=== PATIENT | male | born 1990 | race Caucasian/White ===

== ENCOUNTER 2018-09-30 06:22 | Emergency (ER) | payer OTHER, SELFPAY ==
[2018-09-30 06:26] VITALS: BP 158/107; PULSE 96; RESP 18; TEMP 37; O2SAT 99
--- NOTE | 2018-09-30 06:44 | ED.GENADUL_ITS ---
Discharge Plan Disposition Patient Disposition: HOME Condition: Good Discharge Details Chief Complaint: Orthopedic Clinical Impression: Crushing injury of right thumb, initial encounter, Subungual hematoma Primary Care Provider: None,None ED Provider: Adyd Tee Home Meds and New Rx's Prescriptions: No Action No Known Home Meds RF: 0 Discharge Instructions Additional Instructions: Use ice and Motrin to help with pain and swelling. If it is just a bruise it should be better within a week. If there is a tuft fracture it would be more like 3 to 4 weeks. You may or may not lose the nail. Return to ED if significantly worse pain, redness, swelling. We will have care management work on helping you obtain a primary care. Referrals: Care Management [Provider Group] Medical Decision Making Patient with small subungual hematoma. Not sure would even obtain blood given the small size of this hematoma. He seems to have more pain and discomfort in the thumb pad where there is definite swelling and tenderness. Discussed the possibility of tuft fracture. He has no abnormal range of motion. There would be no definitive or change in treatment plan other than splinting which he does not want. He does not want x-rays. We will hold off on trephination at this point as the subungual hematoma is so small. Patient instructed to use ibuprofen and ice over the next few days. If it is just bruising will resolve in a few days. If the fracture will be painful over the course of a few weeks. Return to ED if any issues. HPI General Mode of arrival: ambulatory . Date/Time Provider Initiated Documentation: 09/30/18 06:41 . Limitations to Documentation: no limitations . Information obtained by: patient . HPI Narrative: Patient presents to ED with right thumb pain. 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 He got his right thumb crushed between a wrench and metal. Happened late yesterday afternoon. He has had discoloration of the thumbnail. He has throbbing especially to the pad. He came in for evaluation this morning prior to going to work. Related Data Home Medications Medication Instructions Recorded Confirmed Unknown [No Known Home Meds] 11/28/14 11/28/14 Allergies Allergy/AdvReac Type Severity Reaction Status Date / Time No Known Allergies Allergy Unverified 11/28/14 14:54 General Stated Complaint: Orthopedic BENI: 3 Review of Systems Constitutional Denies weakness Musculoskeletal Denies numbness and Denies tingling Comments: thumb pain/swelling Integumentary/Breasts Reports nail changes, Denies erythema and Denies wounds Neurologic Denies numbness, Denies sensory deficit, Denies tingling and Denies weakness [facility] Social History Smoking/Tobacco Use Status: Current-Occasional Drug use: Never Do you feel safe at home: Yes Do you feel safe in your relationship?: Yes Exam Const General: cooperative, comfortable and no acute distress Orientation: alert and oriented x3 Skin Trauma: no lacerations or abrasions Extrem Other: Right thumb with normal range of motion. There is a small subungual hematoma less than a quarter of the nail on the radial aspect proximally. He has tenderness and swelling involving the radial aspect of the pad. Rest of hand exam is unremarkable. Course Vital Signs Temperature 98.6 F 09/30/18 06:26 Pulse 96 H 09/30/18 06:26 Respiratory Rate 18 09/30/18 06:26 Blood Pressure 158/107 H 09/30/18 06:26 Pulse Oximetry 99 09/30/18 06:26 Temperature 98.6 F 09/30/18 06:26 Temperature Source Tympanic 09/30/18 06:26 Pulse 96 H 09/30/18 06:26 Respiratory Rate 18 09/30/18 06:26 Respiratory Effort Non-Labored 09/30/18 06:31 Blood Pressure 158/107 H 09/30/18 06:26 Pulse Oximetry 99 09/30/18 06:26 Oxygen Delivery Method Room Air 09/30/18 06:26 Oxygen Flow Rate 0 09/30/18 06:26 Pain Level 6 09/30/18 06:26
[2018-09-30 07:01] VITALS: BP 158/107; PULSE 96; RESP 18; O2SAT 99
--- NOTE | 2018-09-30 10:24 | NUR.NOTE ---
Nursing Note: Faxed to [facility] patient referral. Sharon Coronado
== END 2018-09-30 07:04 | disposition home or self-care (01) ==
PROVIDERS: Emergency Provider Emergency Medicine
DX: S67.01XA Crushing injury of right thumb, initial encounter (principal); S60.011A Contusion of right thumb without damage to nail, initial encounter; W23.0XXA Caught, crushed, jammed, or pinched between moving objects, initial encounter
CPT/HCPCS: 99282

== ENCOUNTER 2019-03-11 09:10 | Emergency (ER) | payer OTHER, SELFPAY ==
[2019-03-11 09:13] VITALS: BP 163/86; PULSE 107; RESP 16; TEMP 36.8; O2SAT 99
--- NOTE | 2019-03-11 09:31 | W.ED.GENAD ---
Discharge Plan Disposition Patient Disposition: HOME Condition: Stable Discharge Details Chief Complaint: Laceration Clinical Impression: Laceration of nose Primary Care Provider: None,None ED Provider: Sintia Pack Home Meds and New Rx's Prescriptions: No Action No Known Home Meds RF: 0 Discharge Instructions Instructions: Facial Laceration (ED) Additional Instructions: Do not cover the wound with Band-Aid, tape, antibiotic ointment. Let the glue fall off naturally and do not peel it off prematurely. Take Tylenol and Motrin as needed and directed for pain. Return to the emergency department if you develop any worsening or concerning symptoms such as persistent headaches, persistent vomiting, dizziness, blurry vision or weakness. Discharge Data Discharge Date/Time-TO BE ENTERED AT DEPARTURE: 03/11/19 10:00 Discharge Physician: Sintia Pack Medical Decision Making 28-year-old male presents with laceration to the bridge of his nose sustained when hit with a pipe wrench at work against his glasses which caused the laceration to his nose. Denies LOC, vomiting, blurry vision, neck pain. Unknown tetanus status. There is a 1 cm straight laceration with a 2 mm superficial abrasion extending off distal aspect. Patient has no obvious bony injury, deformity, epistaxis, periorbital edema or ecchymosis. Do not see an indication for imaging of the face or head at this time and patient is agreeable. Wound irrigated well. Tetanus given. Wound closed with Dermabond. Edges well approximated. Patient was instructed on care with Dermabond. He is advised to follow-up with his primary care doctor for reevaluation and to return here anytime with any concerns. HPI General Mode of arrival: ambulatory. Date/Time Provider Initiated Documentation: 03/11/19 09:18. Limitations to Documentation: no limitations. Information obtained by: patient. History of Present Illness described as moderate, Quality is described as aching, and is localized to the face. Patient reports no radiation. Patient started experiencing this hour(s) (1) and it has been constant. No relieving factors improve symptom(s), No exacerbating factors reported . Patient notes other (Denies neck pain); denies headaches, nausea/vomiting, seizure, syncope and weakness. Patient did receive the following treatments prior to arrival, none HPI Narrative: Hit himself with a pipe wrench at work sustaining a laceration to the bridge of his nose. Related Data Home Medications Medication Instructions Recorded Confirmed Unknown [No Known Home Meds] 11/28/14 03/11/19 Allergies Allergy/AdvReac Type Severity Reaction Status Date / Time No Known Allergies Allergy Unverified 11/28/14 14:54 General Stated Complaint: Laceration BENI: 4 Review of Systems All systems reviewed & are unremarkable except as noted in HPI and below Constitutional Constitutional: Reports as per HPI, Denies chills and Denies fever(s) Eyes Eyes: Denies blurry vision ENT Ears, Nose, Mouth, and Throat: Denies dizziness, Denies sore throat and Denies throat swelling Cardiovascular Cardiovascular: Denies chest pain and Denies dyspnea Respiratory Respiratory: Denies cough and Denies dyspnea Gastrointestinal Gastrointestinal: Denies abdominal pain, Denies diarrhea and Denies vomiting Genitourinary Genitourinary: Denies hematuria and Denies dysuria Musculoskeletal Musculoskeletal: Denies back pain and Denies numbness Integumentary/Breasts Skin/Breast: Denies lesions and Denies rash Neurologic Neurologic: Denies dizziness, Denies focal weakness and Denies numbness Allergic/Immunologic Allergic/Immunologic: Denies throat swelling [facility] Medical History No significant past medical history (Acute) Surgical History No significant past surgical history (Acute) Social History Smoking/Tobacco Use Status: Former Tobacco Use Alcohol Intake: current Alcohol Intake frequency: a few times a week Alcohol type: hard liquor Drug use: Never Substance use type: does not use Do you feel safe at home: Yes Do you feel safe in your relationship?: Yes Exam Const General: cooperative, healthy appearing and no acute distress [facility] Head: normal to inspection, no palpable skull fracture, normocephalic and atraumatic Ears: hearing grossly normal bilaterally, external ears normal and TM's normal bilaterally General nose exam: nares normal and no nasal discharge Face images: 1. 1cm straight laceration located on bridge of nose. There is a 2mm superficial abrasion extending off the distal aspect of laceration. Mild active oozing. Mouth: oral mucosae normal Teeth and gingiva: dentition normal Throat: posterior oropharynx normal Eyes General: appearance normal, both eyes and all related structures Neck Neck: normal visual inspection Resp Effort & Inspection: normal respiratory effort and able to speak in complete sentences Cardio Rate: regular rate Back/Spine/Pelvis Cervical Spine: No cervical spinal tenderness Skin General skin exam: no rashes or lesions noted Neuro General: alert, awake, oriented x3 and moves all extremities Motor: muscle tone normal throughout Extrem General: normal to inspection and full ROM Psych Appearance: grossly normal Affect: normal affect Course Vital Signs Vital signs: Vital Signs Temperature 98.2 F 03/11/19 09:13 Pulse 107 H 03/11/19 09:13 Respiratory Rate 16 03/11/19 09:13 Blood Pressure 163/86 H 03/11/19 09:13 Pulse Oximetry 99 03/11/19 09:13 Temperature 98.2 F 03/11/19 09:13 Pulse 107 H 03/11/19 09:13 Respiratory Rate 16 03/11/19 09:13 Respiratory Effort Non-Labored 03/11/19 09:18 Blood Pressure 163/86 H 03/11/19 09:13 Blood Pressure Position Sitting 03/11/19 09:13 Pulse Oximetry 99 03/11/19 09:13 Oxygen Delivery Method Room Air 03/11/19 09:13 Oxygen Flow Rate 0 03/11/19 09:13 Pain Level 5 03/11/19 09:13 Procedures Laceration Laceration 1: Site: face Side (If applicable): right Size (cm): 1 Description: linear Depth: simple, single layer Pre-repair: wound explored, irrigated extensively and deep structures intact Skin layer closed with: other (dermabond)
--- NOTE | 2019-03-11 09:36 | NUR.NOTE ---
Nursing Note: clean Lac with N/s per Dr. Pack
== END 2019-03-11 10:00 | disposition home or self-care (01) ==
LOC: ER 09:47
PROVIDERS: Emergency Provider Physician Assistant
DX: S01.21XA Laceration without foreign body of nose, initial encounter (principal); W27.0XXA Contact with workbench tool, initial encounter
CPT/HCPCS: 12001; 90471; 99283

== ENCOUNTER 2023-04-23 17:49 | Emergency (ER) | payer OTHER, SELFPAY ==
[2023-04-23] VITALS (64 sets, daily range): BP systolic 147–190; BP diastolic 92–131; PULSE 61–89; RESP 8–21; TEMP 35.7; O2SAT 84–100
--- NOTE | 2023-04-23 17:45 | RT.EKG_ITS ---
APPROVED REPORT Exam: Resting ECG Reason for Exam: chest pain Patient Location: E HR:68 bpm ECG Measurements Heart Rate 68 AXIS NE 170 P 31 QRSd 100 QRS 5 QT 371 T -2 QTc 394 Conclusion Sinus rhythm...normal P axis, V-rate 60- 99 ST elevation, consider lateral injury...ST >0.10mV, I aVL V5 V6 sinus rhythm, normal axis, normal intervals, t wave inversion and st depressions III aVF, without rec iprocal changes
--- NOTE | 2023-04-23 18:08 | W.ED.GENAD ---
Discharge Plan Disposition Patient Disposition: Transfer-Acute Inpatient Care Specific Acute Inpt Facility: [facility] Condition: Critical Discharge Details Clinical Impression: Acute non-ST elevation myocardial infarction (NSTEMI) Primary Care Provider: None,None ED Provider: Deepti Gasca Home Meds and New Rx's Prescriptions: No Action No Known Home Meds Discharge Data Discharge Date/Time-TO BE ENTERED AT DEPARTURE: 04/23/23 23:17 Medical Decision Making Patient presents with substernal chest pain has been having since 3:00 pm this afternoon while at work no significant alleviating or aggravating factors noted but did say he vomitted x1 which helped his symptoms. Took Tums with no improvement. EKG has been obtained and does show ST depression in leads II and III. He is given aspirin 324 mg to chew. He will also be given nitroglycerin x3 with routine cardiac labs obtained, patient will remain monitored in the department while investigations are returned. Will have a chest x-ray. Differentials include ACS aortic dissection GERD. Doubt pneumothorax or infectious etiology. Initial troponin returned at 200. Patient did not have any improvement in his symptoms with the SL nitro x3. at this time will initiate heparin drip per ACS protocol and start nitroglycerin drip titrate to chest pain free as long as blood pressure tolerates. Call has been placed to cardiology at [facility] for transfer request for further cardiac evaluation. 1953: Received call back from [facility] [place] spoke with Dr. Elizabeth, case has been reviewed. He recommends adding carvedilol 12.5 mg p.o., atorvastatin 80 mg and Plavix load of 600 mg p.o. stat in addition to current heparin and nitroglycerin drip. We have been titrating and he is at 15 mics per minute, we will continue to titrate per protocol. Patient's pain has been constant and not responsive to nitro. Patient has been accepted in transfer under Dr. Roque pending bed availability. 3-hour troponin pending for 2099 with repeat EKG, will continue to closely monitor patient's cardiovascular status while awaiting transfer 2123: repeat troponin drawn at 2099 now increased to 1700, nitro currently at 50 mcg/min, will continue to titrate for pain which is 5/10 down from 7/10. EKG repeated, both faxed to DR Elizabeth at [facility]. 2224: notified of bed acceptance, nitro now at 70 mcg/min with c/p 4/10, will give morphine 4 mg IVP. transfer paperwork completed. will continue to titrate nitro and monitor patient and if still here, will need repeat troponin at 0300. 2310: patient transported to [facility] [place] EMS in stable condition. Medical Records Medical records reviewed: Yes I reviewed the patient's medical records. Imaging Data Radiologic Study: Imaging: X-Ray Radiologist's impression: Patient Name: Herson Amado Unit #: [id number] Loc: ER Ordering Provider: Deepti Gasca [employer]ICER Status: REG ER Primary Care Provider: None,None Date of Exam: 04/23/23 Sex: M Admission Date: 04/23/23 : 1990 Age: 33 Exam(s) XR PORTABLE CHEST AP EXAM: XR PORTABLE CHEST AP CLINICAL HISTORY: chest pain TECHNIQUE: 2D digital imaging was performed. COMPARISON: No exams were available for comparison FINDINGS: LUNGS: Clear. No pleural abnormality seen. HEART: Normal size. AORTA: Normal diameter. BONES: Unremarkable for age. Soft tissues: Unremarkable. IMPRESSION: No acute findings. Lab Data Lab results reviewed: Yes I reviewed the patient's lab results. Lab results narrative: Laboratory Results - last 24 hr 04/23/23 04/23/23 18:10 20:36 WBC 8.40 RBC 5.55 Hgb 15.7 Hct 45.0 MCV 81 MCH 28.3 MCHC 34.9 RDW 12.2 Plt Count 361 MPV 9.0 Immature Gran % 1.0 Neutrophils % 71.1 Lymphocytes % 20.7 Monocytes % 5.5 Eosinophils % 1.1 Basophils % 0.6 Nucleated RBC % 0.0 Absolute Neutrophils 5.98 Absolute Lymphocytes 1.74 Absolute Monocytes 0.46 Absolute Eosinophils 0.09 Absolute Basophils 0.05 D-Dimer 193 Sodium 141 Potassium 3.9 Chloride 104 Carbon Dioxide 27.3 Anion Gap 9.7 BUN 18 Creatinine 1.2 Est GFR (CKD-EPI 2020) 81.38 Glucose 129 H Calcium 9.4 Magnesium 2.0 Total Bilirubin 0.3 AST 23 ALT 37 Alkaline Phosphatase 76 Troponin I 202 H* 1705 H* NT-Pro-B Natriuret Pep 30 Total Protein 7.9 Albumin 4.2 ECG Data Attestation: I personally reviewed and interpreted this ECG (s) as follows: (t wave inversion leads 2 and 3. ) Interpretation: EKG read per DR Meek. HPI General Mode of arrival: ambulatory. Date/Time Provider Initiated Documentation: 04/23/23 17:56. Limitations to Documentation: no limitations. Information obtained by: patient. HPI Narrative: Patient presents to the emergency department for sudden onset of substernal chest pressure today while at work. States the pain has been constant. Does not radiate anywhere. Did try Tums with no significant improvement. Reports that he did vomit which actually helped his symptoms. He denies any aggravating factors. He denies any similar history in the past. He denies any cough or recent illness. He has had no peripheral edema. He states he does have a history of hypertension which is untreated as he does not have a primary care provider. On exam blood pressure is noted to be elevated. Non-smoker No family history of early cardiac disease or known cardiac disease Related Data Home Medications Medication Instructions Recorded Confirmed Unknown [No Known Home Meds] 11/28/14 04/23/23 Allergies Allergy/AdvReac Type Severity Reaction Status Date / Time No Known Allergies Allergy Unverified 11/28/14 14:54 General Stated Complaint: Chest Pain BENI: 3 Review of Systems All systems reviewed & are unremarkable except as noted in HPI and below PFSH All Active Problems (Updated 04/23/23 @ 21:28 by Deepti Gasca NP) Acute non-ST elevation myocardial infarction (NSTEMI) (Acute) Medical History (Updated 04/23/23 @ 21:28 by Deepti Gasca NP) No significant past medical history Surgical History No significant past surgical history Social History Smoking/Tobacco Use Status: Former Tobacco Use Smoking risk assessment performed?: Yes Alcohol Intake: current Alcohol Intake frequency: a few times a week Alcohol type: hard liquor Drug use: Never Substance use type: does not use Housing: house Do you feel safe at home: Yes Do you feel safe in your relationship?: Yes Exam Narrative Exam Narrative: Obese male of stated age in no acute distress head is atraumatic oral mucosas moist cardiovascular regular rate and rhythm no murmurs are appreciated respirations are even and unlabored with clear breath sounds bilaterally neck is supple with no evidence of JVD abdomen is benign moves all extremities with no edema skin no rashes or lesions neuro he is awake alert oriented no focal deficits Course Vital Signs Vital signs: Vital Signs Temperature 35.7 C L 04/23/23 17:52 Pulse 77 04/23/23 17:52 Respiratory Rate 20 04/23/23 17:52 Blood Pressure 182/131 H 04/23/23 17:52 Pulse Oximetry 100 04/23/23 17:52 Temperature 35.7 C L 04/23/23 17:52 Temperature Source Temporal Artery Scan 04/23/23 17:52 Pulse 77 04/23/23 17:52 Respiratory Rate 20 04/23/23 17:55 Respiratory Effort Normal 04/23/23 17:55 Respiratory Depth Normal 04/23/23 17:55 Respiratory Pattern Normal 04/23/23 17:55 Blood Pressure 182/131 H 04/23/23 17:52 Blood Pressure Position Sitting 04/23/23 17:52 Pulse Oximetry 100 04/23/23 17:52 Oxygen Delivery Method Room Air 04/23/23 17:52 Oxygen Flow Rate 0 04/23/23 17:52 PAWSS Have you Been Recently Intoxicated or Drunk Within the Last 30 days?: No Have you Ever Experienced Previous Episodes of Alcohol Withdrawal?: No Have you ever Experienced Withdrawal Seizures?: No Have you ever Experienced Delirium Tremens(DT)s?: No Have you ever undergone Alcohol Rehabilitation Treatment (i.e, inpt ot outpatient treatment programs)?: No Have you ever Experienced Blackouts?: No Have you ever Combined Alcohol with other Downers within the last 90 days?: No Have you ever Combined Alcohol with any other Substance of Abuse during the last 90 days?: No Positive Blood Alcohol level on Presentation? [PCS.BAL]: No Evidence of Increased Autonomic Activity (i.e. HR>120, tremor, sweating, agitation, nausea)?: No Result: 0
[2023-04-23] MEDS: Aspirin 81 MG CHEW 324 MG CH (18:11)
[2023-04-23] MEDS: nitroGLYcerin 0.4 MG TAB SL (18:11)
[2023-04-23 18:16] LABS: Abs Immature Grans 0.08 10^3/uL (0.0-0.06); Absolute Basophil Count 0.05 10^3/uL (0.0-0.2); Absolute Eosinophil Count 0.09 10^3/uL (0.0-0.7); Absolute Lymphocyte Count 1.74 10^3/uL (1.2-3.4); Absolute Monocyte Count 0.46 10^3/uL (0.1-0.8); Absolute Neutrophil Count 5.98 10^3/uL (1.2-6.7); Basophils % 0.6; Eosinophils % 1.1; HGB 15.7 g/dL (13.5-17.5); Lymphocytes % 20.7; MCH 28.3 pg (27.0-33.0); MCHC 34.9 % (32.0-36.0); MCV 81 fL (80-95); Monocytes % 5.5; Neutrophils % 71.1; Platelet Count 361 10^3/uL (130-400); RBC 5.55 10^6/uL (4.36-5.78); RDW 12.2 % (11.8-14.1); RDW-SD 35.8 fL
--- NOTE | 2023-04-23 18:28 | DI.RAD_ITS ---
Exam(s) XR PORTABLE CHEST AP EXAM: XR PORTABLE CHEST AP CLINICAL HISTORY: chest pain TECHNIQUE: 2D digital imaging was performed. COMPARISON: No exams were available for comparison FINDINGS: LUNGS: Clear. No pleural abnormality seen. HEART: Normal size. AORTA: Normal diameter. BONES: Unremarkable for age. Soft tissues: Unremarkable. IMPRESSION: No acute findings. DATA REPOSITORY: RADIATION DOSE DELIVERED:
[2023-04-23 18:37] LABS: ALT 37 U/L (16-63); AST 23 U/L (15-37); Albumin 4.2 g/dL (3.4-5.0); Alkaline Phosphatase 76 U/L (46-116); Anion Gap 9.7 mmol/L (3-11); BUN 18 mg/dL (7-18); Bilirubin, Total 0.3 mg/dL (0.2-1.0); CO2 27.3 mmol/L (21.0-32.0); CREATININE 1.2 mg/dL (0.70-1.30); Calcium 9.4 mg/dL (8.5-10.1); Chloride 104 mmol/L (98-107); Estimated GFR 81.38 (mL/min/1.73m2); Glucose 129 mg/dL (74-106); NT-proBNP 30 pg/mL (<300); Potassium 3.9 mmol/L (3.5-5.1); Sodium 141 mmol/L (136-145); Total Protein 7.9 g/dL (6.4-8.2)
[2023-04-23 18:42] LABS: Troponin I 202 ng/L (<or=60)
[2023-04-23 18:56] LABS: D-Dimer 193 ng/mlFEU (<500)
[2023-04-23] MEDS: Heparin in 0.45% NaCl 25,000 UNIT/250 ML BAG 10 UNIT IV (19:00)
[2023-04-23] MEDS: Acetaminophen 500 MG TAB 1000 MG PO (19:04)
[2023-04-23] MEDS: nitroGLYcerin in D5W 50 MG/250 ML BTL IV (19:30)
[2023-04-23] MEDS: Atorvastatin 40 MG TAB 80 MG PO (20:15)
[2023-04-23] MEDS: Clopidogrel 300 MG TAB 600 MG PO (20:15)
--- NOTE | 2023-04-23 20:45 | RT.EKG_ITS ---
APPROVED REPORT Exam: Resting ECG Reason for Exam: follow up Patient Location: E HR:65 bpm ECG Measurements Heart Rate 65 AXIS NJ 163 P 33 QRSd 104 QRS 40 QT 382 T -5 QTc 398 Conclusion Sinus rhythm...normal P axis, V-rate 60- 99 ST elev, probable normal early repol pattern...ST elevation, age<55 sinus rhythm, normal axis, normal intervals
[2023-04-23 21:26] LABS: Troponin I 1705 ng/L (<or=60)
[2023-04-23] MEDS: Carvedilol 12.5 MG TAB PO (21:38)
--- NOTE | 2023-04-24 10:20 | NUR.NOTE ---
Accessed chart to determine orders for EKG and to determine whether or not one needs to be cancelled. Nursing Note:
== END 2023-04-23 23:17 | disposition short-term general hospital (02) ==
PROVIDERS: Emergency Provider Nurse Practitioner Acute Care
DX: I21.4 Non-ST elevation (NSTEMI) myocardial infarction (principal); I10 Essential (primary) hypertension; R94.31 Abnormal electrocardiogram [ECG] [EKG]; R79.89 Other specified abnormal findings of blood chemistry; Z87.891 Personal history of nicotine dependence
CPT/HCPCS: 80053; 93005; 96374; 99285; 71045; 83735; 83880; 84484; 85025; 85379; 93010

== ENCOUNTER 2023-05-01 18:19 | Outpatient (CLI) | payer OTHER, SELFPAY ==
[2023-05-01 16:24] LABS: Anion Gap 10.9 mmol/L (3-11); BUN 19 mg/dL (7-18); CO2 28.1 mmol/L (21.0-32.0); CREATININE 1.1 mg/dL (0.70-1.30); Calcium 9.2 mg/dL (8.5-10.1); Chloride 102 mmol/L (98-107); Estimated GFR 90.34 (mL/min/1.73m2); Glucose 99 mg/dL (74-106); Potassium 4.6 mmol/L (3.5-5.1); Sodium 141 mmol/L (136-145)
== END 2023-05-01 18:20 | disposition home or self-care (01) ==
LOC: LBO 18:19
PROVIDERS: Visit Provider Nurse Practitioner Family
DX: I10 Essential (primary) hypertension (principal)
CPT/HCPCS: 36415; 80048

== ENCOUNTER 2023-05-22 08:09 | Outpatient (CLI) | payer OTHER, SELFPAY ==
--- NOTE | 2023-05-22 08:00 | RT.EKG_ITS ---
APPROVED REPORT Exam: Resting ECG Reason for Exam: CAD Patient Location: O HR:75 bpm ECG Measurements Heart Rate 75 AXIS W[place] 161 P 41 QRSd 107 QRS 84 QT 374 T 70 QTc 418 Conclusion Sinus rhythm...normal P axis, V-rate 50- 99 ST elev, probable normal early repol pattern...ST elevation, age<55 I have reviewed and interpreted ECG and agree with software generated interpretation.
== END 2023-05-22 08:10 | disposition home or self-care (01) ==
LOC: DI.CARD 08:09
PROVIDERS: Visit Provider Internal Medicine Interventional Cardiology
DX: I25.10 Atherosclerotic heart disease of native coronary artery without angina pectoris (principal)
CPT/HCPCS: 93010

== ENCOUNTER 2023-05-26 08:08 | Outpatient (RCR) | payer OTHER, SELFPAY | END 2023-05-28 23:59 | disposition home or self-care (01) | LOC: CR 08:08 | PROVIDERS: Visit Provider Internal Medicine Interventional Cardiology | DX: Z95.2 Presence of prosthetic heart valve (principal); Z51.89 Encounter for other specified aftercare | CPT/HCPCS: S9472 ==

== ENCOUNTER 2023-06-23 08:00 | Outpatient (RCR) | payer OTHER, SELFPAY | END 2023-06-26 23:59 | disposition home or self-care (01) | LOC: CR 08:00 | PROVIDERS: Visit Provider Internal Medicine Cardiovascular Disease | DX: Z95.2 Presence of prosthetic heart valve (principal); Z51.89 Encounter for other specified aftercare | CPT/HCPCS: S9472 ==

== ENCOUNTER 2023-07-18 08:34 | Outpatient (RCR) | payer OTHER, SELFPAY | END 2023-07-27 23:59 | disposition home or self-care (01) | LOC: CR 08:34 | PROVIDERS: Visit Provider Internal Medicine Cardiovascular Disease | DX: I25.10 Atherosclerotic heart disease of native coronary artery without angina pectoris (principal); Z51.89 Encounter for other specified aftercare | CPT/HCPCS: S9472 ==

== ENCOUNTER 2025-04-06 07:46 | Outpatient (CLI) | payer OTHER, SELFPAY ==
--- NOTE | 2025-04-06 07:45 | RT.EKG_ITS ---
APPROVED REPORT Exam: Resting ECG Reason for Exam: CAD Patient Location: O HR:77 bpm ECG Measurements Heart Rate 77 AXIS RI 164 P 18 QRSd 102 QRS -69 QT 352 T 33 QTc 399 Conclusion Sinus rhythm...normal P axis, V-rate 50- 90 LAFB Late transition
== END 2025-04-06 07:47 | disposition home or self-care (01) ==
LOC: DI.CARD 07:47
PROVIDERS: Visit Provider Registered Nurse
DX: I25.10 Atherosclerotic heart disease of native coronary artery without angina pectoris (principal); I44.4 Left anterior fascicular block
CPT/HCPCS: 93010